=== PATIENT | male | born 1975 | race Caucasian/White ===

== ENCOUNTER 2017-01-26 12:47 | Emergency (ER) | payer SELFPAY ==
[~2017-01-26] VITALS: Ht 190.5 cm; Wt 75.2 kg
[2017-01-26 12:59] VITALS: BP 111/73; PULSE 82; RESP 16; TEMP 98.1; O2SAT 95
--- NOTE | 2017-01-26 13:28 | PD ---
HPI Chief Complaint: Musculoskeletal Complaint Time Seen by Provider: 13:21 Travel History International Travel<30 days: No Contact w/Intl Traveler<30days: No Traveled to known affect area: No History of Present Illness HPI 41 year-old male presents to the emergency room for evaluation of acute on chronic right knee pain. Patient injured his knee 2 years ago by stepping of a stair and twisting his knee. He went to the ER and was told to follow-up with a orthopedic surgeon but never did. Patient believes his knee healed wrong. He states about 1 week ago, he twisted it again at work and has been having continued medial knee pain since. Pain is worsened with any range of motion and ambulation. Localized to the medial aspect without radiation. Patient states it is causing in her mid paresthesias the right foot. He has not taken anything for symptoms. He wears a knee brace with moderate relief. He denies chronic medical conditions or daily medications. 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 Reported Meds & Prescriptions Reported Meds & Active Scripts Active Ibuprofen 600 Mg Tab 600 Mg PO Q8H PRN Review of Systems Except as stated in HPI: all other systems reviewed are Neg Physical Exam Narrative GENERAL: Well-nourished, well-developed male in no acute distress. Afebrile. Ambulatory. SKIN: Focused skin assessment warm/dry. No erythema or ecchymosis. HEAD: Normocephalic. EYES: No scleral icterus. No injection or drainage. NECK: Supple, trachea midline. No JVD or lymphadenopathy. CARDIOVASCULAR: Regular rate and rhythm without murmurs, gallops, or rubs. RESPIRATORY: Breath sounds equal bilaterally. No accessory muscle use. EXTREMITY: Right knee tender to palpation. Full range of motion in all joints. No significant edema. Mild effusion. 2+ dorsalis pedis pulse. Data Data Last Documented VS Vital Signs Date Time Temp Pulse Resp B/P Pulse Ox O2 Delivery O2 Flow Rate FiO2 01/26/17 12:59 98.1 82 16 111/73 95 Orders Knee, Complete (4vws) (01/26/17 ) MDM Medical Decision Making Medical Screen Exam Complete: Yes Emergency Medical Condition: Yes Medical Record Reviewed: Yes Differential Diagnosis Strain versus fracture versus degenerative disc disease versus internal derangement Narrative Course 41-year-old male presents to the emergency room for evaluation of acute on chronic right knee pain. Patient is not pain 2 years ago after injury identified chronic pain since. Reinjured it 1 week ago. Patient has been ambulatory since onset of symptoms. Physical exam is reassuring. No loss of range of motion. Right lower extremity is neurovascularly intact. X-ray is negative for acute abnormality. Patient told to follow-up with primary care physician for outpatient MRI. He understands and agrees to plan. Diagnosis Primary Impression: Right medial knee pain Referrals: [facility] Patient Instructions: General Instructions, Knee Pain (ED) Additional Instructions: Rest and drink plenty of fluids. Take ibuprofen with food as directed, as needed for pain. Follow-up with a primary care physician. Return to the emergency room for worsening symptoms. Med/Other Pt SpecificInfo: Prescription(s) given Scripts Ibuprofen 600 Mg [id number] Mg PO Q8H PRN (PAIN) #15 TAB Ref 0 Prov:John Lindsey MD 01/26/17 Disposition: 01 DISCHARGE HOME Condition: Stable Alexandria Keane Jan 26, 2017 13:28
--- NOTE | 2017-01-26 14:14 | RADHPO ---
EXAM DATE/TIME: 01/26/2017 13:27 [facility] COMPARISON: No previous studies available for comparison. INDICATIONS : Right knee pain after twisting MEDICAL HISTORY : Previous knee injury SURGICAL HISTORY : None. ENCOUNTER: Initial ACUITY: 1 day PAIN SCORE: 10/10 LOCATION: Right medial pain FINDINGS: Four view examination of the right knee demonstrates no evidence of fracture or dislocation. Mild med ial joint space narrowing. Bony mineralization is normal. The articular surfaces are intact. The pickard prapatellar soft tissues have a normal configuration. CONCLUSION: 1. Mild medial compartment degenerative change. Solomon Quintero MD on January 26, 2017 at 13:43 Board Certified Radiologist. This report was verified electronically.
[2017-01-26] MEDS ORDERED: IBUP-232 PO (14:18)
== END 2017-01-26 14:34 | disposition home or self-care (01) ==
LOC: PHEFT 12:47
DX: M25.561 Pain in right knee (principal); G89.29 Other chronic pain; M25.461 Effusion, right knee; F17.210 Nicotine dependence, cigarettes, uncomplicated
CPT/HCPCS: 73564; 99283

== ENCOUNTER 2017-11-16 12:44 | Emergency (ER) | payer SELFPAY ==
[~2017-11-16] VITALS: Ht 190.5 cm; Wt 73.6 kg
[~2017-11-16 12:44] MED LIST: IBUP-232 PO
[2017-11-16 12:45] VITALS: BP 127/65; PULSE 87; RESP 16; TEMP 98.6; O2SAT 98
--- NOTE | 2017-11-16 13:31 | PD ---
HPI Chief Complaint: Injury Time Seen by Provider: 13:16 Travel History International Travel<30 days: No Contact w/Intl Traveler<30days: No Traveled to known affect area: No History of Present Illness HPI 42-year-old male that presents to the ED for evaluation of discoloration to his right great toe. Per patient he denies any injury or trauma. The patient since November 07 his noted green on the ball of his great toe. Per patient she only wears white shoes and white socks. He denies wearing anything green. He denies doing anything to it. He states that he has no pain with but is mostly numb. He denies any urinary or bowel movement issues. No fevers chills or sweats. Has never had like this before. Completely denies anything green been around him. No green socks. Has a history of MRSA. No other medical issues. 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 Reported Meds & Prescriptions Reported Meds & Active Scripts Active No Active Prescriptions or Reported Medications Review of Systems Except as stated in HPI: all other systems reviewed are Neg Physical Exam Narrative GENERAL: SKIN: Warm and dry. Patient has green discoloration of the bottom of the great toe. Appears to have a callus in this area. By removing the callus there is no discoloration underneath the skin. HEAD: Atraumatic. Normocephalic. EYES: Pupils equal and round. No scleral icterus. No injection or drainage. ENT: No nasal bleeding or discharge. Mucous membranes pink and moist. Tongue is midline. No uvula deviation. NECK: Trachea midline. No JVD. CARDIOVASCULAR: Regular rate and rhythm. RESPIRATORY: No accessory muscle use. Clear to auscultation. Breath sounds equal bilaterally. GASTROINTESTINAL: Abdomen soft, non-tender, nondistended. Hepatic and splenic margins not palpable. MUSCULOSKELETAL: Extremities without clubbing, cyanosis, or edema. No obvious deformities. NEUROLOGICAL: Awake and alert. No obvious cranial nerve deficits. Motor grossly within normal limits. Five out of 5 muscle strength in the arms and legs. Normal speech. PSYCHIATRIC: Appropriate mood and affect; insight and judgment normal. Data Data Last Documented VS Vital Signs Date Time Temp Pulse Resp B/P (MAP) Pulse Ox O2 Delivery O2 Flow Rate FiO2 11/16/17 12:45 98.6 87 16 127/65 (85) 98 Orders Orders Ed Discharge Order (11/16/17 13:29) MDM Medical Decision Making Medical Screen Exam Complete: Yes Emergency Medical Condition: Yes Medical Record Reviewed: Yes Differential Diagnosis Discoloration versus fungus versus normal exam Versus callus Narrative Course 42-year-old male that presents to the ED for evaluation of discoloration of the great toe. Patient was properly examined and was found to have signs and symptoms of unclear to me what appears to be related to possible thigh. Does not appear to be infectious. My attending Dr. Goodwin evaluated the patient himself and using a sterile scalpel skin was removed and there was no sign of deeper infection or discoloration. He appears to be something superficial that his been in contact with. Patient was reassured this. I do recommend that the patient checks his shoes to see what insight that she was is likely there something that continues to cause the green discoloration. Told to follow with PCP. See ED worsening symptoms. Diagnosis Primary Impression: Discoloration of skin of foot Patient Instructions: General Instructions Departure Forms: Tests/Procedures Additional Instructions: Check the inside of your shoes to make sure you are not in contact with something that is causing the discoloration. See ED if worsening symptoms. It will take about 2-4 weeks for the discoloration to disappear as long as you are not in contact with anything that causes it. Med/Other Pt SpecificInfo: No Change to Meds Scripts No Active Prescriptions or Reported Meds Disposition: 01 DISCHARGE HOME Condition: Stable Mal Addison Nov 16, 2017 13:31
== END 2017-11-16 13:36 | disposition home or self-care (01) ==
LOC: PHEFT 12:44
DX: L84 Corns and callosities (principal); F17.200 Nicotine dependence, unspecified, uncomplicated; Z86.14 Personal history of Methicillin resistant Staphylococcus aureus infection
CPT/HCPCS: 99281